=== PATIENT | female | born 2000 | race Two or more races ===

== ENCOUNTER 2025-08-08 00:05 | Emergency (ER) | payer OTHER, MEDICAID, SELFPAY ==
[2025-08-08 00:13] VITALS: BMI 32.5
[2025-08-08 00:14] VITALS: BP 119/81; PULSE 73; RESP 18; TEMP 36.7; O2SAT 99
--- NOTE | 2025-08-08 00:21 | XR_ITS ---
Examination: CT brain head without contrast. 2-D sagittal coronal reconstructions Date and time of exam: August 08, 2025, 0045 hours COMPARISON: 05/07/2018 INDICATIONS: Numbness episodes in the arm and face blurred vision and headache, on the right side beginning August 07, 2025 CTDI: vol (mGy): 49.9 DLP: (mGycm): 957 Technique: Multiple CT axial sections of the brain have been obtained, 5 mm slice thickness. Contrast has not been administered. 2-D sagittal, coronal reconstructions have been obtained Low dose protocols were performed. One or more of the following dose reduction techniques were used; automated exposure control, adjustment of the mA and/or KV according to patient size, use of iterative reconstruction technique. Findings: No significant ventricular enlargement. Intra-axial or extra-axial hemorrhage density is not seen. No mass effect or midline shift Basal cisterns are not remarkable. Fourth ventricle is midline. Cranial vault intact. Impression: Negative for acute hemorrhage, mass effect or midline shift As clinically warranted, brain MRI follow-up would best assess for demyelinating disease as well as acute ischemic change
--- NOTE | 2025-08-08 00:23 | PD.EDRME ---
Rapid Medical Screening Exam RME Arrival date/time: 08/08/25 00:05 25-year-old female with a history of migraine headaches reports with complaints of facial numbness slurred speech upper extremity numbness memory loss dizziness and migraine headache today Chief Complaint: General Adult/Misc Complain Time Seen by Provider: 08/08/25 00:20 Vital signs: Vital Signs Temperature 98.0 F 08/08/25 00:14 Pulse Rate 73 08/08/25 00:14 Respiratory Rate 18 08/08/25 00:14 Blood Pressure 119/81 08/08/25 00:14 Pulse Oximetry (%) 99 08/08/25 00:14 Oxygen Delivery Method Room Air 08/08/25 00:14 Exam: - Clinical Impression: -
[2025-08-08 00:49] LABS: Collection Type, Urine Clean Catch
[2025-08-08 00:52] LABS: Basophils # (Auto) 0.0 Thou/mm3 (0.0-0.2); Basophils % (Auto) 0 % (0-2.5); Eosinophils # (Auto) 1.1 Thou/mm3 (0.0-0.5); Eosinophils % (Auto) 13 % (0-10); Hematocrit 41.1 % (36.0-46.0); Hemoglobin 13.3 g/dL (12.0-16.0); Immature Granulocytes Auto 0.01 Thou/mm3 (0.00-0.00); Lymphocytes # (Auto) 2.3 Thou/mm3 (1.0-4.8); Lymphocytes % (Auto) 26 % (10-50); Mean Corpuscular HGB Conc 32.4 g/dl (31.0-37.0); Mean Corpuscular Hemoglobin 27.3 pg (25.0-35.0); Mean Corpuscular Volume 84 fL (80-100); Monocytes # (Auto) 0.5 Thou/mm3 (0.0-0.8); Monocytes % (Auto) 6 % (0-12); Neutrophils # (Auto) 5.0 Thou/mm3 (1.8-7.7); Neutrophils % (Auto) 55 % (37-80); Nucleated Red Blood Cell # 0.00 Thou/mm3 (0.00-0.00); Nucleated Red Blood Cell % 0 /100 WBC (0); Platelet Count 235 Thou/mm3 (140-440); RDW Standard Deviation 41.8 fL (36.4-46.3); Red Blood Count 4.88 Miln/mm3 (4.00-5.20); White Blood Count 9.0 Thou/mm3 (3.6-11.0)
[2025-08-08 01:01] LABS: Bacteria,Urine 2+; Bilirubin,Urine Negative (Negative); Blood,Urine 1+ (Negative); Clarity,Urine Clear (Clear/Hazy); Color,Urine Yellow (Lt Yel-Yel); Glucose, Urine Negative (Negative); Ketones,Urine Negative (Negative); Leukocyte Esterase,Urine Positive (Negative); Nitrite,Urine Negative (Negative); PH,Urine 6.0 (5.0-7.0); Protein,Urine Trace (Neg - Trace); RBC,Urine 4 /hpf (0-3); Specific Gravity,Urine 1.032 (1.001-1.035); Squamous Epithelial Cell,Urine 10 /hpf (0-5); Urobilinogen,Urine Negative mg/dL (0.0-1.0); WBC,Urine 21 /hpf (0-5)
[2025-08-08 01:02] LABS: Amphetamine/Methamp Scrn,U Negative (Negative); Barbiturate Screen,Urine Negative (Negative); Benzodiazepines Screen,Urine Negative (Negative); Benzoylecgonine Screen, Ur Negative (Negative); Culture Indicated,Urine Yes; Fentanyl Screen,Urine Negative (Negative); Opiate Screen,Urine Negative (Negative); THC Screen,Urine Negative (Negative)
--- NOTE | 2025-08-08 01:02 | PRELIM_ITS ---
CT scan of the head without intravenous contrast (axial sections with sagittal and coronal reformats). August 08, 2025 0045 hours Clinical History: headache and facial numbness Comparison: None Findings: There is no intracranial hemorrhage, extra-axial collection, mass, mass-effect or midline shift. There is good steel-white differentiation. There is no CT evidence of acute large vascular territorial infarct. Ventricles are not enlarged or effaced. Visualized paranasal sinuses and tympanomastoid cavities are clear. The bony calvarium is intact. Impression: No intracranial hemorrhage, mass-effect or midline shift. No CT evidence of acute large vascular territorial infarct. Report Electronically Signed By: Joseph An 08/08/2025 1:01:59 AM [EST]
[2025-08-08 01:21] LABS: HCG,Qualitative Serum Negative
[2025-08-08 01:38] LABS: Alanine Aminotransferase 10 U/L (10-49); Albumin, Serum 4.5 gm/dL (3.5-5.0); Albumin/Globulin Ratio 1.9 (1.2-2.2); Alkaline Phosphatase 56 U/L (46-116); Anion Gap 7 (7-16); Aspartate Amino Transferase 14 U/L (0-34); BUN/Creatinine Ratio 9 Ratio (12-20); Bilirubin,Total 0.4 mg/dL (0.3-1.2); Blood Urea Nitrogen 7 mg/dL (9-23); Calcium 9.0 mg/dL (8.3-10.6); Calcium (Corrected) 9.0 mg/dL (8.5-10.1); Carbon Dioxide 27.9 mMol/L (20.0-31.0); Chloride 108 mMol/L (98-107); Creatinine (Component) 0.8 mg/dL (0.6-1.3); Estimated Creatinine Clearance 111.0 mL/min (>60); Globulin 2.4 gm/dL (2.3-3.5); Glucose 101 mg/dL (74-106); Osmolality,Calculated 282 (275-295); Potassium 3.6 mMol/L (3.4-5.1); Sodium 143 mMol/L (136-145); Total Protein 6.9 gm/dL (5.7-8.2); eGFR > 60 See Note
[2025-08-08 03:46] VITALS: BP 123/77; PULSE 74; RESP 19; TEMP 36.6; O2SAT 100
--- NOTE | 2025-08-08 03:47 | PC.NURSE ---
PUT PT TO OLD TRIGE TO BE RE EVALUATED, V/S RE CHECK, INFORMED ER MD TO SEE IF PT CAN BE RE EVALUATED.
--- NOTE | 2025-08-08 05:09 | PC.NURSE ---
PT INFORMED SECURITY THAT SHE NEED TO GO HOME.
== END 2025-08-08 05:10 | disposition left against medical advice (07) ==
LOC: SERX 00:40
PROVIDERS: Physician Assistant; Emergency Provider Emergency Medicine; PCP Internal Medicine
DX: R20.0 Anesthesia of skin (principal); R47.81 Slurred speech; R41.3 Other amnesia; R42 Dizziness and giddiness; G43.909 Migraine, unspecified, not intractable, without status migrainosus; H53.8 Other visual disturbances; Z53.29 Procedure and treatment not carried out because of patient's decision for other reasons
CPT/HCPCS: 36415; 70450; 80053; 80307; 81001; 84703; 85025; 87077; 87086; 87186; 99283